=== PATIENT | female | born 1990 | race Caucasian/White ===

== ENCOUNTER 2019-05-26 07:33 | Emergency (ER) | payer BC, MEDICAID ==
--- NOTE | 2019-05-26 10:07 | ER Document Report ---
ED ENT - General Chief Complaint: Sore Throat Stated Complaint: SORE THROAT, FEVER Time Seen by Provider: 05/26/19 10:07 Primary Care Provider: SHEMAR GARIBAY MD [ACTIVE STAFF] - Follow up in 3-5 days (for primary care establishment and follow up) TRAVEL OUTSIDE OF THE [place] IN LAST 30 DAYS: No - HPI Notes: 28-year-old female to the emergency department with complaints of sore throat since yesterday. She also reports some runny nose as well as some ear pain. She states that she started to cough this morning. Denies any fevers, chills, chest pain, shortness of breath, nausea, vomiting, diarrhea, abdominal pain. She states that she has taken some Tylenol for her symptoms but it has not helped. She states her boyfriend at home started to get the symptoms as well. - Related Data Allergies/Adverse Reactions: latex Allergy (Intermediate, Verified 05/26/19 07:58) Past Medical History - General Information source: Patient - Social History Smoking Status: Current Every Day Smoker Frequency of alcohol use: Occasional Drug Abuse: None Family History: Reviewed & Not Pertinent Patient has suicidal ideation: No Patient has homicidal ideation: No Renal/ Medical History: Reports: Hx Kidney Stones. Denies: Hx Peritoneal Dialysis - Immunizations Immunizations up to date: Yes Hx Diphtheria, Pertussis, Tetanus Vaccination: Yes Review of Systems - Review of Systems Constitutional: Malaise. denies: Chills, Fever EENT: See HPI, Ear pain, Throat pain Cardiovascular: denies: Chest pain, Palpitations, Orthopnea, Dyspnea, Syncope Respiratory: Cough. denies: Hurts to breathe, Short of breath, Sputum Gastrointestinal: denies: Abdominal pain, Diarrhea, Nausea, Vomiting Genitourinary: No symptoms reported Female Genitourinary: No symptoms reported Musculoskeletal: No symptoms reported Skin: No symptoms reported Neurological/Psychological: No symptoms reported -: Yes All other systems reviewed and negative Physical Exam - Vital signs Vitals: Temp Pulse Resp BP Pulse Ox 99.2 F 141 H 14 142/87 H 98 05/26/19 07:41 05/26/19 07:41 05/26/19 07:41 05/26/19 07:41 05/26/19 07:41 Selected Entries 05/26/19 05/26/19 08:24 10:47 Temperature 98.6 F Pulse Rate [ 112 H Right Finger] Respiratory 18 Rate Blood Pressure 132/82 H [Left Upper Arm ] Blood Pressure 98 Mean [Left Upper Arm] O2 Sat by Pulse 96 Oximetry Interpretation: Normal - General General appearance: Appears well, Alert - HEENT Head: Normocephalic, Atraumatic Eyes: Normal Pupils: PERRL Ears: Normal External canal: Normal Tympanic membrane: Normal. No: Bulging, Hemotympanum, Injected, Purulent effusion Sinus: Normal Nasal: Normal Mouth/Lips: Normal Mucous membranes: Normal Pharynx: Erythema. No: Exudate, Peritonsillar abscess, Post nasal drainage, Retropharyngeal abscess, Tonsillar hypertrophy, Uvular edema, Potential airway comprom. Neck: Normal - Respiratory Respiratory status: No respiratory distress Chest status: Nontender Breath sounds: Normal Chest palpation: Normal - Cardiovascular Rhythm: Regular Heart sounds: Normal auscultation Murmur: No - Abdominal Inspection: Normal Distension: No distension Bowel sounds: Normal Tenderness: Nontender Organomegaly: No organomegaly - Back Back: Normal, Nontender - Neurological Neuro grossly intact: Yes Cognition: Normal Orientation: AAOx4 Telma Coma Scale Eye Opening: Spontaneous Telma Coma Scale Verbal: Oriented Telma Coma Scale Motor: Obeys Commands [place] Coma Scale Total: 15 Speech: Normal Motor strength normal: LUE, RUE, LLE, RLE Sensory: Normal - Psychological Associated symptoms: Normal affect, Normal mood - Skin Skin Temperature: Warm Skin Moisture: Dry Skin Color: Normal Course - Re-evaluation Re-evalutation: 05/26/19 Impression: URI, viral pharyngitis. Strep is negative, will give Nsaids and decadron here. Encouraged rest, pushing fluids, will send home with Nsaids, cough medicine, and chloraseptic spray. Encouraged to return if worsening symptoms. Will give PCP follow up. Patient agrees with the plan. - Vital Signs Vital signs: Temp Pulse Resp BP Pulse Ox 98.6 F 121 H 18 132/82 H 96 05/26/19 10:47 05/26/19 10:47 05/26/19 10:47 05/26/19 10:47 05/26/19 10:47 - Laboratory Laboratory results interpreted by me: 05/26/19 08:10 Group A Strep Rapid NEGATIVE Discharge - Discharge Clinical Impression: Pharyngitis Qualifiers: Pharyngitis/tonsillitis etiology: unspecified etiology Qualified Code(s): J02.9 - Acute pharyngitis, unspecified Upper respiratory infection Qualifiers: URI type: unspecified viral URI Qualified Code(s): J06.9 - Acute upper respiratory infection, unspecified Condition: Stable Disposition: HOME, SELF-CARE Instructions: Sore Throat ([facility]), Upper Respiratory Illness ([facility]) Additional Instructions: PUSH FLUIDS, REST. TAKE MEDICINES PRESCRIBED. MAY DRINK WARM BEVERAGES WITH HONEY TO HELP COAT THE THROUGH. RETURN IF WORSENING SYMPTOMS SUCH CHEST PAIN, SHORTNESS OF BREATH, INTRACTABLE VOMITING, OR ANY OTHER CONCERNS. Prescriptions: Benzonatate [Tessalon Perles 100 mg Capsule] 100 mg PO Q8HP PRN #21 capsule PRN Reason: Ibuprofen [Motrin 800 mg Tablet] 800 mg PO Q8H PRN #30 tab PRN Reason: Phenol [Chloraseptic] 2 spray MM TID #1 bottle Forms: Return to Work Referrals: SHEMAR GARIBAY MD [ACTIVE STAFF] - Follow up in 3-5 days (for primary care establishment and follow up)
[2019-05-26] MEDS ORDERED: IBUPROFEN 800 MG TABLET PO ONE (10:16)
[2019-05-26] MEDS: DEXAMETHASONE CONC 1 MG/ML SOLN PO ONE ×2 (10:30→10:46)
[2019-05-26 10:49] VITALS: BP 132/82
== END 2019-05-26 10:38 | disposition home or self-care (01) ==
LOC: ER 07:33
DX: J02.8 Acute pharyngitis due to other specified organisms (principal); B97.89 Other viral agents as the cause of diseases classified elsewhere; R09.89 Other specified symptoms and signs involving the circulatory and respiratory systems; H92.09 Otalgia, unspecified ear; R05 Cough; R53.81 Other malaise; F17.200 Nicotine dependence, unspecified, uncomplicated; Z91.040 Latex allergy status
CPT/HCPCS: 99283; 87070; 87880; 87077; J8540

== ENCOUNTER 2019-09-14 08:48 | Emergency (ER) | payer BC, OTHER ==
--- NOTE | 2019-09-14 09:18 | ER Document Report ---
ED Medical Screen (RME) - General Chief Complaint: Abscess Stated Complaint: COUGH,CONGESTION,NASAL CONGESTION Time Seen by Provider: 09/14/19 09:04 Mode of Arrival: Ambulatory Information source: Patient Notes: 28-year-old female presents to ED for complaint of cough cold congestion pain in both ears worse on the left and an abscess to the pilonidal area. She states this is been there for several days and is painful. She is also 6 weeks . She states she does smoke about a pack a day but is trying to quit this does not drink or use any drugs. She is alert and oriented respirations regular nonlabored speaking in full sentences. There is an abscess to the pilonidal area. I have greeted and performed a rapid initial assessment of this patient. A comprehensive ED assessment and evaluation of the patient, analysis of test results and completion of medical decision making process will be conducted by an additional ED providers. TRAVEL OUTSIDE OF THE [place] IN LAST 30 DAYS: No - Related Data Allergies/Adverse Reactions: latex Allergy (Intermediate, Verified 05/26/19 07:58) Past Medical History - Social History Frequency of alcohol use: Occasional Drug Abuse: None Renal/ Medical History: Reports: Hx Kidney Stones. Denies: Hx Peritoneal Dialysis - Immunizations Immunizations up to date: Yes Hx Diphtheria, Pertussis, Tetanus Vaccination: Yes Physical Exam - Vital signs Vitals: Temp Pulse Resp BP Pulse Ox 98.2 F 102 H 18 142/83 H 100 09/14/19 09:08 09/14/19 09:08 09/14/19 09:08 09/14/19 09:08 09/14/19 09:08 Course - Vital Signs Vital signs: Temp Pulse Resp BP Pulse Ox 98.2 F 102 H 18 142/83 H 100 09/14/19 09:08 09/14/19 09:08 09/14/19 09:08 09/14/19 09:08 09/14/19 09:08
[2019-09-14 09:41] LABS: APPEARANCE,URINE SLIGHTLY-CLOUDY; BILIRUBIN,URINE NEGATIVE (NEGATIVE); COLOR,URINE YELLOW; GLUCOSE, URINE NEGATIVE (NEGATIVE); KETONES,URINE NEGATIVE (NEGATIVE); PROTEIN,URINE NEGATIVE (NEGATIVE); URINE SPECIFIC GRAVITY 1.003; UROBILINOGEN,URINE NEGATIVE mg/dL (<2.0)
--- NOTE | 2019-09-14 10:54 | ER Document Report ---
ED General - General Chief Complaint: Abscess Stated Complaint: COUGH,CONGESTION,NASAL CONGESTION Time Seen by Provider: 09/14/19 09:04 Mode of Arrival: Ambulatory Notes: 28-year-old female presents with abscess to upper buttock and cough/congestion. Patient states she is more concerned about the abscess then her cough/ congestion and declines for exam for cough/congestion. Patient states abscess has been there for the past several days. States it is painful to sit or lie down. Patient denies any history of diabetes or previous abscesses that needed draining. TRAVEL OUTSIDE OF THE [place] IN LAST 30 DAYS: No - Related Data Allergies/Adverse Reactions: latex Allergy (Intermediate, Verified 09/14/19 09:34) Past Medical History - General Information source: Patient - Social History Smoking Status: Current Every Day Smoker Frequency of alcohol use: Occasional Drug Abuse: None Family History: Reviewed & Not Pertinent Patient has suicidal ideation: No Patient has homicidal ideation: No Pulmonary Medical History: Reports: Hx Bronchitis Renal/ Medical History: Reports: Hx Kidney Stones. Denies: Hx Peritoneal Dialysis Past Surgical History: Reports: Hx Oral Surgery - Immunizations Immunizations up to date: Yes Hx Diphtheria, Pertussis, Tetanus Vaccination: Yes Review of Systems - Review of Systems Notes: Constitutional: Negative for fever. HENT: Negative for sore throat. Eyes: Negative for visual changes. Cardiovascular: Negative for chest pain. Respiratory: Negative for shortness of breath. Gastrointestinal: Negative for abdominal pain, vomiting or diarrhea. Genitourinary: Negative for dysuria. Musculoskeletal: Negative for back pain. Skin: Positive for abscess. Negative for rash. Neurological: Negative for headaches, weakness or numbness. 10 point ROS negative except as marked above and in HPI. Physical Exam - Vital signs Vitals: Temp Pulse Resp BP Pulse Ox 98.2 F 102 H 18 142/83 H 100 09/14/19 09:08 09/14/19 09:08 09/14/19 09:08 09/14/19 09:08 09/14/19 09:08 - Notes Notes: GENERAL: Well-appearing, well-nourished and in no acute distress. HEAD: Atraumatic, normocephalic. EYES: Extraocular movements intact, sclera anicteric, conjunctiva are normal. ENT: Moist mucous membranes. NECK: Normal range of motion, supple without lymphadenopathy or JVD. EXTREMITIES: Normal range of motion, no pitting or edema. No clubbing or cyanosis. NEUROLOGICAL: Cranial nerves II through XII grossly intact. Normal speech, normal gait. PSYCH: Normal mood, normal affect. SKIN: Approximately 2 cm abscess seen with no surrounding erythema. Warm, Dry, normal turgor, no rashes or lesions noted. Course - Re-evaluation Re-evalutation: 09/14/19 28-year-old female who is approximately 6 weeks presents with possible pilonidal abscess for past several days. Patient is afebrile, non- tachycardic, nontoxic, well-appearing. Approximately 2 cm abscess seen superior to gluteal cleft. Discussed I&D versus warm compresses and antibiotics. Patient declined I&D at this time and would rather do warm compresses and antibiotics. MRI antibiotic guide recommends Augmentin 875 p.o. twice daily. This antibiotic is for risk category B are up-to-date. Patient instructed to follow-up in 24 to 48 hours if no improvement. Patient voices understanding and agrees with plan of care. - Vital Signs Vital signs: Temp Pulse Resp BP Pulse Ox 98.2 F 102 H 18 142/83 H 100 09/14/19 09:08 09/14/19 09:08 09/14/19 09:08 09/14/19 09:08 09/14/19 09:08 - Laboratory Laboratory results interpreted by me: 09/14/19 09:10 Leukocyte Esterase Rfl SMALL H Discharge - Discharge Clinical Impression: Pilonidal cyst with abscess Condition: Stable Disposition: HOME, SELF-CARE Instructions: Abscess ([facility]) Additional Instructions: Please take Augmentin as prescribed. Use warm compresses as discussed. Return to the ER or urgent care in 48 hours for recheck. Return to ER immediately if any worsening symptoms, including fever, worsening abscess, redness, or any other concerning symptoms to you. Prescriptions: Amox Tr/Potassium Clavulanate [Augmentin 875-125 Tablet] 1 tab PO BID 10 Days #20 tablet Forms: Return to Work
[2019-09-14 12:10] VITALS: BP 133/86
== END 2019-09-14 12:10 | disposition home or self-care (01) ==
LOC: ER 08:48
DX: O99.719 Diseases of the skin and subcutaneous tissue complicating pregnancy, unspecified trimester (principal); L05.01 Pilonidal cyst with abscess; O26.899 Other specified pregnancy related conditions, unspecified trimester; R05 Cough; O99.330 Smoking (tobacco) complicating pregnancy, unspecified trimester; F17.200 Nicotine dependence, unspecified, uncomplicated; Z91.040 Latex allergy status; Z3A.00 Weeks of gestation of pregnancy not specified
CPT/HCPCS: 81001; 99283

== ENCOUNTER 2020-02-05 16:14 | Emergency (ER) | payer OTHER, MEDICAID ==
[2020-02-05 16:20] VITALS: BP 145/78
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
[2020-02-05 17:31] LABS: APPEARANCE,URINE CLOUDY; BILIRUBIN,URINE NEGATIVE (NEGATIVE); COLOR,URINE YELLOW; GLUCOSE, URINE NEGATIVE (NEGATIVE); KETONES,URINE NEGATIVE (NEGATIVE); PROTEIN,URINE NEGATIVE (NEGATIVE); UROBILINOGEN,URINE NEGATIVE mg/dL (<2.0)
== END 2020-02-05 18:02 | disposition home or self-care (01) ==
LOC: ER 16:14
DX: O26.92 Pregnancy related conditions, unspecified, second trimester (principal); M54.5 Low back pain; V43.52XA Car driver injured in collision with other type car in traffic accident, initial encounter; O99.332 Smoking (tobacco) complicating pregnancy, second trimester; F17.210 Nicotine dependence, cigarettes, uncomplicated; Z3A.26 26 weeks gestation of pregnancy; Z91.040 Latex allergy status
CPT/HCPCS: 81001; 87086; 87088; 99283; 99406

== ENCOUNTER 2020-05-02 15:28 | Inpatient (IN) | payer MEDICAID ==
[2020-05-02 16:13] LABS: APPEARANCE,URINE SLIGHTLY-CLOUDY; BILIRUBIN,URINE NEGATIVE (NEGATIVE); COLOR,URINE YELLOW; GLUCOSE, URINE 50 mg/dL (NEGATIVE); KETONES,URINE NEGATIVE (NEGATIVE); LEUKOCYTE ESTERASE,URINE LARGE (NEGATIVE); NITRITE,URINE NEGATIVE (NEGATIVE); PROTEIN,URINE NEGATIVE (NEGATIVE); UROBILINOGEN,URINE NEGATIVE mg/dL (<2.0)
[2020-05-02 16:21] LABS: URINE AMPHETAMINES SCREEN NEGATIVE; URINE BARBITURATES SCREEN NEGATIVE; URINE BENZODIAZEPINES SCREEN NEGATIVE; URINE COCAINE SCREEN NEGATIVE; URINE MARIJUANA (THC) SCREEN NEGATIVE; URINE METHADONE SCREEN NEGATIVE; URINE PHENCYCLIDINE SCREEN NEGATIVE
[2020-05-02] MEDS ORDERED: NORMAL SALINE 1000 ML 1,000 ML IV PRN (16:35)
--- NOTE | 2020-05-02 20:29 | Admission Physical ---
Datetime Report Generated by CPN: 05/02/2020 20:29 CURRENT ADMISSION Chief Complaint: Sent from OB Office for Evaluation and Treatment - Please Specify Chief Complaint Other: TIN of 2 in office. sent for hydration and rechk. Actiprom negative here Indication for Induction: Oligohydramnios Admit Impression : Term, Intrauterine ; Induction of Labor Admit Plan: Admit to Unit; Initiate Labor Induction Protocol Admit Plan- Other: GBS protocol ALLERGIES Medication Allergies: No Medication Allergies: latex/MO (05/02/2020) Latex: Latex Allergies Food Allergies: none Environmental Allergies: none OBSTETRICAL HISTORY : 3 Para: 1 Term: 1 : 0 SAB: 1 IAB: 0 Livin PHYSICAL EXAM General: Normal HEENT: Normal Neurologic: Normal Thyroid: Normal Heart: Normal Lungs: Normal Breast: Normal Back: Normal Abdomen: Normal Genitourinary Exam: Normal Extremities: Normal DTRs: Normal Pelvic Type: Adequate Vital Signs: Reviewed VAGINAL EXAM Dilatation: 3 Effacement: 50 Station: -1 FETUS A Monitoring: External US FHR- Baseline: 140 Variability: Moderate 6-25bpm Accelerations: 15X15 Decelerations: None FHR Category: Category I Estimated Weight (gm): 3500 Presentation: Vertex Admit Comment: admit for induction secondary to oligohydramnios due to suspected rupture of membranes. will initiate PCN for GBS INFORMED CONSENT Signature: with User ID: [email or web address]
[2020-05-02] MEDS ORDERED: OXYTOCIN/0.9 % SODIUM CHLORIDE 30 UNIT/500 ML RTUINJ IV PRN (20:31)
[2020-05-02] MEDS ORDERED: PENICILLIN G-K 5 MILLION UNIT VIAL ONE (20:36)
[2020-05-02] MEDS ORDERED: PENICILLIN G-K 5 MILLION UNIT VIAL IV ONE (20:36)
--- NOTE | 2020-05-02 20:36 | RADIOLOGY REPORT (SQ) ---
US PELVIS HISTORY: Evaluate TIN. COMPARISON: None. TECHNIQUE: Grayscale, color Doppler, and spectral Doppler ultrasound images of the pelvis were obtained. FINDINGS: There is a single live intrauterine gestation in vertex presentation. The heart rate is 144 bpm. The placenta is anterior. Largest vertical pocket is 1.0 x 1.4 cm. TIN is 2.1 cm. IMPRESSION: Findings suggestive of oligohydramnios.
[2020-05-02] MEDS ORDERED: LIDOCAINE 1% INJ-PF (10 MG/ML) 30 ML SDV ONE (21:15)
[2020-05-02] MEDS ORDERED: MISOPROSTOL 0.2 MG TABLET ONE (21:15)
[2020-05-02] MEDS ORDERED: OXYTOCIN 10 UNIT/ML VIAL ONE (21:15)
[2020-05-02] MEDS ORDERED: OXYTOCIN/0.9 % SODIUM CHLORIDE 30 UNIT/500 ML RTUINJ ONE (21:15)
[2020-05-02] MEDS ORDERED: PENICILLIN G-K 5 MILLION UNIT VIAL IV SCH (22:00)
[2020-05-02 22:38] LABS: ABSOLUTE EOSINOPHILS # (AUTO) 0.1 10^3/uL (0.0-0.6); ABSOLUTE LYMPHOCYTES (AUTO) 1.7 10^3/uL (0.5-4.7); ABSOLUTE MONOCYTES (AUTO) 0.5 10^3/uL (0.1-1.4); ABSOLUTE NEUT (AUTO) 7.2 10^3/uL (1.7-8.2); BASOPHILS % (AUTO) 0.4 % (0-2); EOSINOPHILS % (AUTO) 0.7 % (0-6); HEMATOCRIT 30.5 % (36.0-47.0); HEMOGLOBIN 10.8 g/dL (12.0-15.5); LYMPHOCYTES % (AUTO) 17.6 % (13-45); MEAN CORPUSCULAR HEMOGLOBIN 32.1 pg (27.0-33.4); MEAN CORPUSCULAR HGB CONC 35.4 g/dL (32.0-36.0); MEAN CORPUSCULAR VOLUME 91 fl (80-97); MONOCYTES % (AUTO) 5.2 % (3-13); PLATELET COUNT 195 10^3/uL (150-450); RED BLOOD COUNT 3.37 10^6/uL (3.72-5.28); RED CELL DISTRIBUTION WIDTH 12.9 % (11.5-14.0); SEGMENTED NEUTROPHILS % (AUTO) 76.1 % (42-78); TOTAL CELLS COUNTED % (AUTO) 100 %; WHITE BLOOD COUNT 9.4 10^3/uL (4.0-10.5)
[2020-05-02] MEDS ORDERED: EPHEDRINE SULFATE INJ 50 MG/1 ML AMPULE ONE (22:43)
[2020-05-02] MEDS ORDERED: FENTANYL/BUPIVACAINE/NS/PF 300 MCG/150 ML RTUINJ EPI ONE (22:44)
[2020-05-02] MEDS ORDERED: BUPIVACAINE HCL 0.25 % INJ/PF (2.5 MG/1 ML) 30 ML VIAL ONE (22:44)
[2020-05-03] MEDS ORDERED: PENICILLIN G-K 5 MILLION UNIT VIAL ONE ×2 (01:02→04:44)
[2020-05-03] MEDS: PENICILLIN G POTASSIUM 2,500,000 UNIT in DEXTROSE 5%-WATER 50 ML IV SCH ×2 (01:09→04:52)
[2020-05-03] MEDS ORDERED: ACETAMINOPHEN WITH CODEINE #3 TABLET PO PRN ×2 (06:37)
[2020-05-03] MEDS ORDERED: NA PHOS,M-B/NA PHOS,DI-BA (ADULT) 133 ML ENEMA PR PRN (06:37)
[2020-05-03] MEDS ORDERED: PROMETHAZINE HCL 25 MG TABLET PO PRN (06:37)
[2020-05-03] MEDS ORDERED: BENZOCAINE/MENTHOL AEROSOL SPRAY 56 ML TOP PRN (06:37)
[2020-05-03] MEDS ORDERED: ACETAMINOPHEN 650 MG SUPP.RECT PR PRN (06:37)
[2020-05-03] MEDS ORDERED: PSEUDOEPHEDRINE HCL 30 MG TABLET PO PRN (06:37)
[2020-05-03] MEDS ORDERED: MEASLES,MUMPS&RUBELLA VACC/PF 0.5 ML VIAL SUBCUT PRN (06:37)
[2020-05-03] MEDS ORDERED: GLYCERIN/WITCH HAZEL LEAF 1 EACH MED..WIPE TP PRN (06:37)
[2020-05-03] MEDS ORDERED: DIPH/PERTUSS(ACELL)/TETANUS VAC/PF 0.5 ML SYR (>=10YO) IM PRN (06:37)
[2020-05-03] MEDS ORDERED: PROMETHAZINE HCL 25 MG SUPP.RECT PR PRN (06:37)
[2020-05-03] MEDS ORDERED: MAGNESIUM HYDROXIDE SUSP 30 ML UDCUP PO PRN (06:37)
[2020-05-03] MEDS ORDERED: DIPHENHYDRAMINE HCL 25 MG CAPSULE PO PRN (06:37)
[2020-05-03] MEDS ORDERED: DIBUCAINE 1% OINTMENT 28 GM TP PRN (06:37)
[2020-05-03] MEDS ORDERED: OXYTOCIN/0.9 % SODIUM CHLORIDE 30 UNIT/500 ML RTUINJ IV PRN (06:37)
[2020-05-03] MEDS ORDERED: ZOLPIDEM TARTRATE 5 MG TABLET PO PRN (06:37)
[2020-05-03] MEDS ORDERED: PROMETHAZINE HCL INJ 25 MG/1 ML VIAL IV PRN (06:37)
--- NOTE | 2020-05-03 06:51 | Delivery Summary ---
Del Sum A-C Datetime Report Generated by CPN: 05/03/2020 06:50 DELIVERY PERSONNEL DELIVERY PERSONNEL: [id number] Delivery Doctor:: Ne Combs MD Labor and Delivery Nurse:: Beatriz Morillo RNtransition rn Nurse:: Graciela Catherine RN Nursery Nurse:: Eun Burgess RN Nursery Nurse:: Anali Nelson RN MSN MATERNAL INFORMATION Delivery Anesthesia: Epidural Medications After Delivery: Pitocin 30 Units in 500ml NS/D5W Delivery QBL: 100 Maternal Complications: None LABOR SUMMARY EDC: 05/15/2020 00:00 No. Babies in Womb: 1 Labor Anesthesia: Epidural LABOR INFORMATION Reason for Induction: Premature Rupture of Membranes Onset of Labor: 05/03/2020 02:47 Complete Dilatation: 05/03/2020 05:53 Oxytocin: Induction Group B Beta Strep: pos Antibiotics # of Doses: 3 Antibiotics Time of Last Dose: 0445 Name of Antibiotic Given: PCN Steroids Given: None Reason Steroids Not Administered: Not Applicable MEMBRANES Membranes Rupture Method: Artificial Rupture of Membranes: 05/03/2020 05:52 Length of Rupture (hr): 0.18 Amniotic Fluid Color: Clear Amniotic Fluid Amount: Scant Amniotic Fluid Odor: Normal STAGES OF LABOR Stage 1 hr: 3 Stage 1 min: 6 Stage 2 hr: 0 Stage 2 min: 10 Stage 3 hr: 0 Stage 3 min: 3 Total Time in Labor hr: 3 Total Time in Labor min: 19 VAGINAL DELIVERY Episiotomy: None Laceration #1: None Laceration Extension #1: N/A Laceration Repair: Not Applicable Sponge Count Correct: Yes Sharps Count Correct: Yes CSECTION DELIVERY Primary Indication: N/A Secondary Indication: N/A CSection Incidence: N/A Labor: N/A Elective: N/A CSection Incision: N/A BABY A INFORMATION Infant Delivery Date/Time: 05/03/2020 06:03 Method of Delivery: Vaginal Nurse Controlled Delivery: No Born in Route : No : N/A Forceps: N/A Vacuum Extraction: N/A Shoulder Dystocia : No PRESENTATION/POSITION BABY A Presentation: Cephalic Cephalic Presentation: Vertex Vertex Position: Right Occipital Anterior Breech Presentation: N/A PLACENTA INFORMATION BABY A Placenta Delivery Time : 05/03/2020 06:06 Placenta Method of Delivery: Spontaneous Placenta Status: Delivered SCORES BABY A Heart Rate 1 min: >100 bpm Resp Effort 1 min: Good Cry Reflex Irritability 1 min: Cough or Sneeze or Pulls Away Muscle Tone 1 min: Active Motion Color 1 min: Body White Bird, Extremities Blue Resuscitation Effort 1 min: Tactile Stimulation SCORE 1 MIN: 9 Heart Rate 5 min: >100 bpm Resp Effort 5 min: Good Cry Reflex Irritability 5 min: Cough or Sneeze or Pulls Away Muscle Tone 5 min: Active Motion Color 5 min: Body White Bird, Extremities Blue Resuscitation Effort 5 min: Tactile Stimulation SCORE 5 MIN: 9 INFORMATION BABY A Gestational Age at Delivery: 38.2 Gestational Status: Early Term- 37- 38.6 Weeks Outcome : Liveborn Condition : Stable Infant Sex: Male IDENTIFICATION BABY A Verification Date/Time: 05/03/2020 06:20 ID Band Number: [id number] Mother's Name Verified: Yes RN Verifying : Bibi Jean-Baptiste, RN Additional Verifying Personnel: Elizabeth Gutiérrez RN WEIGHT/LENGTH BABY A Birthweight (gm): 3010 Weight (lb): 6 Infant Weight (oz): 10 Length (in): 19.00 Infant Length (cm): 48.26 CORD INFORMATION BABY A No. Cord Vessels: 3 Nuchal Cord : N/A Cord Blood Taken: Yes-For Storage (Mom's Blood type +) Suction: Mouth ASSESSMENT BABY A Skin to Skin: Yes Skin to Skin Time (min): 15
[2020-05-03] MEDS: DOCUSATE SODIUM 100 MG CAPSULE PO SCH ×2 (10:56→17:03)
[2020-05-03] MEDS: SENNOSIDES/DOCUSATE 8.6-50 MG 1 EACH TABLET PO SCH (10:56)
[2020-05-03] MEDS: FERROUS SULFATE 325 MG TABLET PO SCH ×2 (10:56→17:03)
[2020-05-03] MEDS: FAMOTIDINE 20 MG TABLET PO SCH ×2 (10:57→21:13)
[2020-05-03] MEDS: PRENATAL VITAMIN W DHA CAPSULE PO SCH (10:58)
[2020-05-03] MEDS: IBUPROFEN 800 MG TABLET PO SCH ×2 (14:58→21:13)
[2020-05-04] MEDS: IBUPROFEN 800 MG TABLET PO SCH ×3 (05:46→22:49)
[2020-05-04] MEDS: PENICILLIN G POTASSIUM 2,500,000 UNIT in DEXTROSE 5%-WATER 50 ML IV SCH (07:37)
[2020-05-04 08:54] LABS: HEMATOCRIT 26.4 % (36.0-47.0); HEMOGLOBIN 9.2 g/dL (12.0-15.5); MEAN CORPUSCULAR HEMOGLOBIN 31.6 pg (27.0-33.4); MEAN CORPUSCULAR HGB CONC 34.8 g/dL (32.0-36.0); MEAN CORPUSCULAR VOLUME 91 fl (80-97); PLATELET COUNT 159 10^3/uL (150-450); RED CELL DISTRIBUTION WIDTH 13.1 % (11.5-14.0); WHITE BLOOD COUNT 7.7 10^3/uL (4.0-10.5)
--- NOTE | 2020-05-04 09:03 | PDOC PROGRESS REPORT ---
Subjective-OB Progress Note for:: 05/04/20 Subjective: Sitting on side of bed, mother feeding baby, no c/o, feeling better, scant bleeding Physical Exam (OB) Vital Signs: Temp Pulse Resp BP Pulse Ox 97.7 F 84 18 103/51 L 100 05/04/20 07:27 05/04/20 07:27 05/04/20 07:27 05/04/20 07:27 05/04/20 07:27 Intake & Output 05/03/20 05/04/20 05/05/20 06:59 06:59 06:59 Intake Total 240 Balance 240 Weight 70.7 kg - PIH/Pre-Eclampsia DTR's: 2 + Clonus: Negative Headache: Absent Epigastric Pain: No Visual Changes: No - Lochia Lochia Amount: Scant < 10 ml Lochia Color: Rubra/Red - Abdomen Description: Soft Hernia Present: No Fundal Description: Firm, Midline Fundal Height: u/u - u/2 Objective-Diagnostic Laboratory: 05/04/20 08:15 05/04/20 08:15 WBC 7.7 RBC 2.90 L Hgb 9.2 L Hct 26.4 L MCV 91 MCH 31.6 MCHC 34.8 RDW 13.1 Plt Count 159 Assessment and Plan(PN) - Assessment and Plan (1) Vaginal delivery Is this a current diagnosis for this admission?: Yes - Time Spent with Patient Time with patient: Less than 15 minutes Medications reviewed and adjusted accordingly: Yes - Disposition Anticipated Discharge: Home Within: within 24 hours
[2020-05-04] MEDS: PRENATAL VITAMIN W DHA CAPSULE PO SCH (09:04)
[2020-05-04] MEDS: DOCUSATE SODIUM 100 MG CAPSULE PO SCH ×2 (09:04→17:53)
[2020-05-04] MEDS: SENNOSIDES/DOCUSATE 8.6-50 MG 1 EACH TABLET PO SCH (09:04)
[2020-05-04] MEDS: FAMOTIDINE 20 MG TABLET PO SCH ×2 (09:04→22:49)
[2020-05-04] MEDS: FERROUS SULFATE 325 MG TABLET PO SCH ×2 (09:04→17:53)
[2020-05-05] MEDS: IBUPROFEN 800 MG TABLET PO SCH (06:32)
[2020-05-05] MEDS: FAMOTIDINE 20 MG TABLET PO SCH (09:37)
[2020-05-05] MEDS: DOCUSATE SODIUM 100 MG CAPSULE PO SCH (09:37)
[2020-05-05] MEDS: FERROUS SULFATE 325 MG TABLET PO SCH (09:37)
[2020-05-05] MEDS: PRENATAL VITAMIN W DHA CAPSULE PO SCH (09:37)
[2020-05-05] MEDS: SENNOSIDES/DOCUSATE 8.6-50 MG 1 EACH TABLET PO SCH (09:37)
--- NOTE | 2020-05-05 13:45 | PDOC DISCHARGE SUMMARY ---
Impression - Admit/DC Date/PCP Admission Date/Primary Care Provider: 05/02/20 20:33 GALINA SCHMIDT MD Discharge Date: 05/05/20 - Discharge Diagnosis (1) Vaginal delivery Is this a current diagnosis for this admission?: Yes - Additional Information Resuscitation Status: Full Code Discharge Diet: Regular Discharge Activity: Balance Activity w/Rest, Pelvic Rest Referrals: GALINA SCHMIDT MD [Primary Care Provider] - Prescriptions: Ibuprofen [Motrin 800 mg Tablet] 800 mg PO Q8HP PRN #60 tablet PRN Reason: Home Medications: No.137/Iron/Folic Acd [ Vitamin Tablet] 1 each PO DAILY 11/11/14 Ibuprofen [Motrin 800 mg Tablet] 800 mg PO Q8HP PRN #60 tablet 05/05/20 HPI Reason(s) for Admission: Induction of Labor, Obstetric Complications Procedures: NST Intrapartum Procedure(s): Spontaneous Vaginal Delivery Results Laboratory Results: WBC 7.7 10^3/uL (4.0-10.5) 05/04/20 08:15 RBC 2.90 10^6/uL (3.72-5.28) L 05/04/20 08:15 Hgb 9.2 g/dL (12.0-15.5) L 05/04/20 08:15 Hct 26.4 % (36.0-47.0) L 05/04/20 08:15 MCV 91 fl (80-97) 05/04/20 08:15 MCH 31.6 pg (27.0-33.4) 05/04/20 08:15 MCHC 34.8 g/dL (32.0-36.0) 05/04/20 08:15 RDW 13.1 % (11.5-14.0) 05/04/20 08:15 Plt Count 159 10^3/uL (150-450) 05/04/20 08:15 Lymph % (Auto) 17.6 % (13-45) 05/02/20 22:21 Summers % (Auto) 5.2 % (3-13) 05/02/20 22:21 Eos % (Auto) 0.7 % (0-6) 05/02/20 22:21 Baso % (Auto) 0.4 % (0-2) 05/02/20 22:21 Absolute Neuts (auto) 7.2 10^3/uL (1.7-8.2) 05/02/20 22:21 Absolute Lymphs (auto) 1.7 10^3/uL (0.5-4.7) 05/02/20 22:21 Absolute Monos (auto) 0.5 10^3/uL (0.1-1.4) 05/02/20 22:21 Absolute Eos (auto) 0.1 10^3/uL (0.0-0.6) 05/02/20 22:21 Absolute Basos (auto) 0.0 10^3/uL (0.0-0.2) 05/02/20 22:21 Seg Neutrophils % 76.1 % (42-78) 05/02/20 22:21 Urine Color YELLOW 05/02/20 15:47 Urine Appearance SLIGHTLY-CLOUDY 05/02/20 15:47 Urine pH 7.0 (5.0-9.0) 05/02/20 15:47 Ur Specific [place] 1.010 05/02/20 15:47 Urine Protein NEGATIVE mg/dL (NEGATIVE) 05/02/20 15:47 Urine Glucose (UA) 50 mg/dL (NEGATIVE) H 05/02/20 15:47 Urine Ketones NEGATIVE mg/dL (NEGATIVE) 05/02/20 15:47 Urine Blood NEGATIVE (NEGATIVE) 05/02/20 15:47 Urine Nitrite NEGATIVE (NEGATIVE) 05/02/20 15:47 Urine Bilirubin NEGATIVE (NEGATIVE) 05/02/20 15:47 Urine Urobilinogen NEGATIVE mg/dL (<2.0) 05/02/20 15:47 Ur Leukocyte Esterase LARGE (NEGATIVE) H 05/02/20 15:47 Urine Ascorbic Acid NEGATIVE (NEGATIVE) 05/02/20 15:47 Membranes Rupture NEGATIVE (NEGATIVE) 05/02/20 15:47 Urine Opiates Screen NEGATIVE 05/02/20 15:47 Urine Methadone Screen NEGATIVE 05/02/20 15:47 Ur Barbiturates Screen NEGATIVE 05/02/20 15:47 Ur Phencyclidine Scrn NEGATIVE 05/02/20 15:47 Ur Amphetamines Screen NEGATIVE 05/02/20 15:47 U Benzodiazepines Scrn NEGATIVE 05/02/20 15:47 Urine Cocaine Screen NEGATIVE 05/02/20 15:47 U Marijuana (THC) Screen NEGATIVE 05/02/20 15:47 RPR NONREACTIVE (NONREACTIVE) 05/02/20 22:21 Blood Type B POSITIVE 05/02/20 22:21 Antibody Screen NEGATIVE 05/02/20 22:21 Impressions: Obstetrics Ultrasound 05/02/20 00:00 IMPRESSION: Findings suggestive of oligohydramnios. Plan Plan of Treatment: f/u at [facility] 4 wks for PPCK Time Spent: Less than 30 Minutes
[2020-05-05 14:17] VITALS: BP 119/70
== END 2020-05-05 14:41 | disposition home or self-care (01) | DRG 807 ==
LOC: LC 15:28 → LR 20:33 → 2S 05-03 09:02
PROVIDERS: ADMIT Obstetrics & Gynecology; ATTEND Obstetrics & Gynecology
PROC: 10E0XZZ Delivery of Products of Conception, External Approach (ICD-10-PCS; principal; 2020-05-03)
PROC: 3E033VJ Introduction of Other Hormone into Peripheral Vein, Percutaneous Approach (ICD-10-PCS; 2020-05-03)
PROC: 10907ZC Drainage of Amniotic Fluid, Therapeutic from Products of Conception, Via Natural or Artificial Opening (ICD-10-PCS; 2020-05-03)
DX: O41.03X0 Oligohydramnios, third trimester, not applicable or unspecified (principal); Z37.0 Single live birth; O99.824 Streptococcus B carrier state complicating childbirth; Z91.040 Latex allergy status; Z3A.38 38 weeks gestation of pregnancy; Z28.82 Immunization not carried out because of caregiver refusal
CPT/HCPCS: 1967; 36415; 59025; 76815; 80307; 81005; 84112; 85025; 85027; 86592; 86850; 86900; 86901; 94760; C1758; J2540; J2590; J3010; J3490; J7060